=== PATIENT | female | born 1940 | race Caucasian/White ===

== ENCOUNTER → 2017-06-30 | Outpatient (CLI) | payer OTHER ==
[~2017-06-30] MED LIST: ADULT LOW DOSE81 MG PO; ASPIRIN325 PO; CALCIUM 500 +1 EAC5 PO; COUMADIN 5 MG TA5 M1 PO; EFFEXOR 5050 MG/1 T1 PO; EFFEXOR XR150 MG PO; ENOXAPARIN60 MG/0.6 SUBQ; FOSAMAX 70 MG T70 MG PO; LIPITOR10 MG PO; LISINOPRIL5 MG PO; NORVASC 5 MG TAB5 MG PO; NORVASC10 MG PO; REMERON15 M1 PO; REMERON15 MG PO; XARELTO15 MG PO; XARELTO20 MG PO; ZESTRIL40 MG PO
== END ==
LOC: M.RAD 12:56
DX: M47.896 Other spondylosis, lumbar region (principal); M43.26 Fusion of spine, lumbar region

== ENCOUNTER → 2017-08-11 | Outpatient (CLI) | payer OTHER | LOC: M.CT 13:08 | DX: Z12.31 Encounter for screening mammogram for malignant neoplasm of breast (principal); G31.09 Other frontotemporal neurocognitive disorder; R55 Syncope and collapse; R11.0 Nausea; R53.1 Weakness ==

== ENCOUNTER 2018-07-10 09:52 | Inpatient (IN) | payer OTHER ==
[~2018-07-10] VITALS: Ht 165.1 cm; Wt 64.0 kg
--- NOTE | ~2018-07-10 | CON ---
[address] [address] CONSULTATION Name: ERIC JORDAN Room: [address] IN M.R.#: [id number] Admission: 07/10/18 Attend Phys: Shahram Holman MD Discharge: Date of : 38 Report #: [id number] THIS REPORT FOR: //name// CC: Shahram Dixon MD DICTATED BY: Melisa Vera [facility] DATE OF SERVICE: 07/11/2018 Please note at the time of this dictation, the patient was seen and physically examined by myself. REASON FOR CONSULTATION: Blood in stool. HISTORY OF PRESENT ILLNESS: This is a 77-year-old female, who presented to the Emergency Room on Wednesday for complaints of bright red blood in her stool that started on Wednesday morning. The patient states Wednesday morning, she noted some really dark red blood in her stool initially and as the day progressed, it became more frequent and it was brighter, prompting her to come in. She states she was having bleeding without a bowel movement and she had to wear a sanitary pad to help with that. She states she has been having a decreased appetite and fluid intake over the last several days with all of this. She did not really complain of significant abdominal pain; however, on physical exam, she did. She denied any fever or chills, any nausea or vomiting at this time. The patient states her bowel habits, she usually goes daily; however, most of the time, she will have pellets as she calls them on a daily basis. The patient did have a colonoscopy back in 2008, appears to be with [facility] and we will try to obtain those records. ALLERGIES: No known drug allergies. MEDICATIONS: From home include Xarelto, Norvasc, Effexor, Os-Melvin, Fosamax, and Zestril and aspirin. PAST MEDICAL HISTORY: History of a PE in 2017, pulmonary hypertension, hypertension. PAST SURGICAL HISTORY: Cataract, hysterectomy, abdominoplasty, back surgery, tonsillectomy and had an IVC filter placed. FAMILY HISTORY: Negative for any GI or female cancers. SOCIAL HISTORY: Past history of tobacco use, social alcohol and [place] [address] CONSULTATION Name: ERIC JORDAN MINA Room: [address]#: [id number] Admission: 07/10/18 Attend Phys: Shahram Holman MD Discharge: Date of : 38 Report #: [id number] REVIEW OF SYSTEMS: Twelve-point review of systems is essentially negative except what is mentioned in the HPI. PHYSICAL EXAMINATION: VITAL SIGNS: Temperature 37.7, pulse 74, respirations 18, blood pressure 106/52. HEART: Regular rate and rhythm. LUNGS: Clear. ABDOMEN: Soft, positive bowel sounds in all 4 quadrants with some slight tenderness noted on the left side. LABORATORY DATA: Hemoglobin 12.7, white count is 10.2, platelets are 323. ESR is 22. CRP is 40.8, GFR is 43. CT of the abdomen and pelvis shows thickening in the distal transverse, splenic and descending parts of the colon. IMPRESSION: 1. Rectal bleeding. 2. Abdominal pain. 3. Constipation. 4. Anticoagulant therapy, history of a pulmonary embolism and on Xarelto. PLAN: 1. ____ colon, tomorrow. 2. Obtain records from [facility]. 3. Further recommendations to be made once the procedure has been performed. Thank you for allowing us to participate in this patient's care. Please do not hesitate to call with any questions in regard to this consult. By: [id number] Christina DO /mao
--- NOTE | ~2018-07-10 | PROC ---
[address] [address] PROCEDURE REPORT Name: ERIC JORDAN Room: [address] IN M.R.#: [id number] Admission: 07/10/18 Attend Phys: Shahram Holman MD Discharge: 07/12/18 Date of : 39 Report #: [id number] THIS REPORT FOR: //name// For GI report, please see the Provation report in Perceptive 7 content. By: 0705Medical Records Staff EDILBERTO /LOPEZ
--- NOTE | ~2018-07-10 | CON ---
[address] [address] CONSULTATION Name: ERIC JORDAN Room: [address] IN M.R.#: [id number] Admission: 07/10/18 Attend Phys: Shahram Holman MD Discharge: Date of : 39 Report #: [id number] THIS REPORT FOR: //name// CC: Shahram Dixon MD ADDENDUM TO JOB NUMBER [id number] REFERRING PHYSICIAN: Dr. Holman. I have seen and examined the patient and agree with the plan that has been outlined by our nurse practitioner, Melisa Vera. 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 She underwent a CT scan of the abdomen and pelvis, which was suggestive of inflammatory change noted within the transverse, descending and sigmoid colon. History sounds very much like it is compatible with a bout of ischemic colitis. Complicating matters, however, is the fact she underwent a full colonoscopy or an attempted colonoscopy in the past and states that due to acute angulation within the colon, they were not able to complete the examination despite the fact that they used what sounds like a pediatric colonoscope or even an upper endoscope. I have kept this in mind and we will take that in consideration when we proceed with colonoscopy tomorrow. At the present time, the patient is currently in the process of drinking her bowel prep, she cannot drink any more of the Colyte, so I told her she can just take some Dulcolax tablets and some water and we will proceed with attempt at colonoscopy tomorrow. I discussed these plans with the patient as well and she is agreeable to the same. By: [id number] Christina DO /mao
[2018-07-10 10:02] VITALS: BP 155/129
[2018-07-10 10:34] LABS: ABSOLUTE BASOPHILS 0.1 thou/uL (0.0-0.2); ABSOLUTE EOSINOPHILS 0.1 thou/uL (0.0-0.7); ABSOLUTE LYMPHOCYTES 1.6 thou/uL (0.8-5.3); ABSOLUTE MONOCYTES 0.9 thou/uL (0.0-1.2); ABSOLUTE NEUTROPHILS 11.2 thou/uL (1.6-8.1); BASOPHILS 0.5 %; EOSINOPHILS 0.6 %; HEMATOCRIT 45.8 % (37.0-47.0); HEMOGLOBIN 15.3 gm/dL (12.0-15.0); LYMPHOCYTES 11.4 %; MCH 29.7 pg (26.0-34.0); MCHC 33.5 g/dL (28.0-37.0); MCV 88.7 fL (80.0-100.0); MONOCYTES 6.6 %; MPV 7.8 fl. (7.2-11.1); NUCLEATED RBCS 0 /100WBC; PLATELET COUNT* 400 thou/uL (150-400); POLYS 80.9 %; RBC 5.16 mil/uL (4.20-5.00); RDW-CV 14.8 % (10.5-14.5); WBC 13.8 thou/uL (4.0-11.0)
[2018-07-10 10:46] LABS: APTT 29.7 Seconds (25.0-31.3); PROTIME 10.1 Seconds (9.20-11.50)
[2018-07-10 10:59] LABS: CALCIUM 9.1 mg/dL (8.5-10.1); CREATININE 1.6 mg/dL (0.6-1.3)
[2018-07-10 11:04] LABS: ALBUMIN 3.7 g/dL (3.4-5.0); TOTAL BILIRUBIN 0.7 mg/dL (<0.1-1.0); TOTAL PROTEIN 7.7 g/dL (6.4-8.2)
[2018-07-10 11:05] LABS: POTASSIUM 4.1 mmol/L (3.5-5.1)
--- NOTE | 2018-07-10 12:13 | NUR ---
PT PUT ON HOSPITAL BED
[2018-07-10 14:11] LABS: URINE BILIRUBIN NEGATIVE (Negative); URINE BLOOD 1+ (Negative); URINE CLARITY CLEAR; URINE COLOR YELLOW; URINE GLUCOSE-RANDOM NEGATIVE (Negative); URINE KETONES NEGATIVE (Negative); URINE LEUKOCYTES-REFLEX NEGATIVE (Negative); URINE NITRITE-REFLEX NEGATIVE (Negative); URINE PROTEIN NEGATIVE (Negative); URINE SPECIFIC GRAVITY <= 1.005 (1.005-1.030); URINE UROBILINOGEN 0.2 E.U./dl (0.2-1.0)
[2018-07-10 14:22] LABS: SQUAMOUS >10 Many /LPF (0-3)
[2018-07-10 14:23] LABS: BACTERIA-REFLEX 1-9 Few /HPF (None Seen); CRYSTALS None Seen /LPF (None Seen); HYALINE CASTS 0-3 Few /LPF (None Seen); MUCUS 0-3 Light strn/LPF (None Seen); URINE RBC 0-2 Rare /HPF (0-2); URINE WBC-REFLEX 0-5 Rare /HPF (0-5)
[2018-07-10 18:24] LABS: HEMATOCRIT 40.4 % (37.0-47.0)
[2018-07-10 18:25] LABS: HEMOGLOBIN 13.3 gm/dL (12.0-15.0)
[2018-07-10 19:59] VITALS: BP 132/61
[2018-07-10 20:15] VITALS: BP 145/71
[2018-07-10] MEDS ORDERED: EFFEXOR XR75 MG PO (20:34)
[2018-07-11] VITALS: BP 127/57
[2018-07-11 02:37] LABS: ABSOLUTE BASOPHILS 0.1 thou/uL (0.0-0.2); ABSOLUTE EOSINOPHILS 0.2 thou/uL (0.0-0.7); ABSOLUTE LYMPHOCYTES 1.9 thou/uL (0.8-5.3); ABSOLUTE MONOCYTES 0.8 thou/uL (0.0-1.2); ABSOLUTE NEUTROPHILS 7.3 thou/uL (1.6-8.1); BASOPHILS 0.8 %; EOSINOPHILS 1.8 %; HEMATOCRIT 38.6 % (37.0-47.0); HEMOGLOBIN 12.7 gm/dL (12.0-15.0); LYMPHOCYTES 18.3 %; MCH 29.5 pg (26.0-34.0); MCHC 32.8 g/dL (28.0-37.0); MONOCYTES 7.8 %; MPV 7.4 fl. (7.2-11.1); NUCLEATED RBCS 0 /100WBC; POLYS 71.3 %; RBC 4.29 mil/uL (4.20-5.00); RDW-CV 14.9 % (10.5-14.5); WBC 10.2 thou/uL (4.0-11.0)
[2018-07-11 02:38] LABS: PLATELET COUNT* 323 thou/uL (150-400)
[2018-07-11 02:42] LABS: CREATININE 1.2 mg/dL (0.6-1.3); POTASSIUM 3.4 mmol/L (3.5-5.1)
[2018-07-11 03:41] LABS: ESR (SEDRATE) 22 mm/hr (0-30)
[2018-07-11 04:00] VITALS: BP 116/57
--- NOTE | 2018-07-11 05:33 | NUR ---
RECEIVED REPORT FROM ELEVATED GUARDKENDRICK SUAZO AT 195. PT ARRIVED TO ROOM AT 2009 VIA CART. PT AAOX4, ORIENTED TO ROOM AND CALL LIGHT. VOICED NO CONCERNS. IV FLUIDS INFUSING. CALL LIGHT WITHIN REACH. NEGATIVE SEPSIS SCREENING.
[2018-07-11 08:00] VITALS: BP 106/52
--- NOTE | 2018-07-11 08:00 | NUR ---
AM ASSESSMENT COMPLETE, DEFER TO COMPUTER CHARTING. HOUSE DECORATOR TRACKING SR. DENIES PAIN, DIZZINESS, NAUSEA AT THIS TIME. IV INFUSING - BP SLIGHTLY LOW THIS AM - NURSE SPOKE WITH DR HUNT - AM BP MEDS AND ASPIRIN HELD AT THIS TIME. UP TO BATHROOM WITH SUPERVISION, HAD BROWNISH, YELLOW LOOSE BM - NO BRIGHT RED BLOOD NOTED. IN BED WITH HOB ELEVATED, CALL LIGHT WITHIN REACH. WILL MONITOR.
[2018-07-11 11:12] VITALS: BP 95/50
--- NOTE | 2018-07-11 12:12 | NUR ---
Pt is A&O. Resides at home with her . Active and independent. No DME. No hx of HH or SNF. Goal is home at ct. No needs.
--- NOTE | 2018-07-11 12:44 | EKG ---
[place] [address] ELECTROCARDIOGRAM REPORT Name: ERIC JORDAN Room: [address] ADM IN M.R.#: [id number] Admission: 07/10/18 Attend Phys: Shahram Holman MD Discharge: Date of : 39 Report #: [id number] THIS REPORT FOR: //name// [facility] ED Test Date: 2018-07-10 Test Time: 10:42:22 Pat Name: ERIC JORDAN Department: Room: [facility] Gender: F Hand Laster: Michelle CARLSON : 1940 Requested By: Nunu Mcnulty Order Number: [id number] MD: Luis F Payton Measurements Intervals [place] Rate: 73 P: 61 MN: 184 QRS: 52 QRSD: 82 T: 38 QT: 378 QTc: 417 Interpretive Statements Sinus rhythm Low voltage, precordial leads Compared to ECG 09/28/2016 18:01:13 Myocardial infarct finding no longer present T-wave abnormality no longer present Electronically Signed On 07-11-2018 12:43:55 CDT by Luis F Payton [email or web address] <ELECTRONICALLY SIGNED> By: Luis F Payton MD, [facility] 07/11/18 1243 1042 1042 Luis F Payton MD, [facility] /EPI
[2018-07-11 15:48] VITALS: BP 145/89
--- NOTE | 2018-07-11 16:25 | NUR ---
BEHAVIORAL HEALTH DIRECTOR TRACKING WITH NO CHANGE IN RHYTHM. PATIENT STARTED ON BOWEL PREP EARLIER ORDERED, NO BLOODY STOOL NOTED OF THIS TIME WITH PREP. NO COMPLAINTS OF NAUSEA. TOLERATING CLEAR LIQUID DIET. AT BEDSIDE. CALL LIGHT WITHIN REACH. WILL CONTINUE WITH PLAN OF CARE.
[2018-07-11 20:00] VITALS: BP 141/81
[2018-07-12] VITALS: BP 133/76
[2018-07-12 04:00] VITALS: BP 121/65
--- NOTE | 2018-07-12 04:51 | NUR ---
ASSUMED PT CARE AT 193. NURSING ASSESSMENT COMPLETED AT START OF SHIFT. PT VOICED NO CONCERNS SR ON GIFT OFFICER. NEW ORDERS RECEIVED FROM DR. HANNA SINCE PT UNABLE TO TOLERATE GOLYTELY AT 2119. HOURLY ROUNDING COMPLETED. PT NPO FOR COLONOSCOPY AT THIS TIME.
[2018-07-12 08:00] VITALS: BP 132/72
[2018-07-12 11:14] LABS: ABSOLUTE BASOPHILS 0.1 thou/uL (0.0-0.2); ABSOLUTE EOSINOPHILS 0.1 thou/uL (0.0-0.7); ABSOLUTE LYMPHOCYTES 1.5 thou/uL (0.8-5.3); ABSOLUTE MONOCYTES 0.7 thou/uL (0.0-1.2); ABSOLUTE NEUTROPHILS 6.9 thou/uL (1.6-8.1); BASOPHILS 1.2 %; EOSINOPHILS 1.6 %; HEMATOCRIT 37.3 % (37.0-47.0); HEMOGLOBIN 12.5 gm/dL (12.0-15.0); LYMPHOCYTES 15.9 %; MCH 29.9 pg (26.0-34.0); MCHC 33.4 g/dL (28.0-37.0); MCV 89.7 fL (80.0-100.0); MONOCYTES 7.1 %; MPV 7.4 fl. (7.2-11.1); NUCLEATED RBCS 0 /100WBC; PLATELET COUNT* 309 thou/uL (150-400); POLYS 74.2 %; RBC 4.16 mil/uL (4.20-5.00); RDW-CV 14.8 % (10.5-14.5); WBC 9.3 thou/uL (4.0-11.0)
[2018-07-12 11:41] LABS: ALBUMIN 2.9 g/dL (3.4-5.0); CALCIUM 8.6 mg/dL (8.5-10.1); POTASSIUM 3.4 mmol/L (3.5-5.1); TOTAL BILIRUBIN 0.6 mg/dL (<0.1-1.0); TOTAL PROTEIN 6.1 g/dL (6.4-8.2)
[2018-07-12] MEDS ORDERED: MIRALAX17 GM PO (13:17)
[2018-07-12] MEDS ORDERED: CIPRO500 MG PO (13:26)
[2018-07-12] MEDS ORDERED: FLAGYL500 M1 PO (13:27)
[2018-07-12 13:30] VITALS: BP 132/72
--- NOTE | 2018-07-12 14:00 | NUR ---
PT READY FOR DC. ATTEMPT TO CALL GI TO ASK WHEN PT IS TO RESTART XARLETO. DR VILLELA PAGED.
--- NOTE | 2018-07-12 15:00 | NUR ---
PT EAGER TO GO HOME. WILL CALL PT WITH INSTRUCTIONS ON WHEN TO RESUME XARLETO WHEN GI RETURNS CALL. PT LEFT UNIT VIA WC
--- NOTE | 2018-07-12 15:39 | NUR ---
ORDER PER DR KRAUSE TO RESUME XARELTO IN AM. CALLED AND NOTIFIED PT
--- NOTE | 2018-07-13 16:06 | PATH ---
[facility] [address] [place] [address] PATHOLOGY RPT PROCEDURE Name: WANDY JORDAN Room: [address] IN M.R.#: [id number] Admission: 07/10/18 Date of : 38 Discharge: 07/12/18 Report #: [id number] Path Case #: [id number] [facility] Accession Number: [id number] . 01 Material submitted: . colon - SIGMOID COLON BIOPSY. Modifiers: sigmoid . 01 Clinical history: . Suspect ischemic colitis . 02 Diagnosis: Sigmoid colon biopsy: - Active colitis with mucosal necrosis typical of ischemic colitis. See comment. (SURI:pit 07/13/2018) QTP/07/13/2018 . 02 Comment: The biopsies reveal benign colonic mucosa including some with full mucosal thickness necrosis and adjacent ischemic mucosa having necrosis and atrophy of the superficial aspects and preservation of the deeper aspects of crypts in association with abundant active inflammation and fresh hemorrhage and condensation of the lamina propria. No significant crypt distortion or basal lymphoplasmacytosis is present to elevate a suspicion for inflammatory bowel disease and no viral inclusions are seen. (SURI:pit 07/13/2018) . 02 Electronically signed: . Thomas Cesar MD, Pathologist NPI- [id number] . 01 Gross description: . Received in formalin labeled "Wandy Jordan, sigmoid colon biopsy," are 2 segments of painter soft tissue measuring 0.6 x 0.1 x 0.1 cm in aggregate dimensions and ranging from 0.2 to 0.4 cm in maximum dimension. The specimen is submitted entirely in cassette A1. (TSD; 07/12/2018) TOB/TOB . 02 Pathologist provided ICD-10: K52.9, K55.069 . 02 CPT . 245885 Specimen Comment: A courtesy copy of this report has been sent to Specimen Comment: [phone], , . Specimen Comment: Report sent to ,DR HUNT / DR BOTELLO Performed at: [address] [place] [address] PATHOLOGY RPT PROCEDURE Name: WANDY JORDAN [facility] Room: [address] DIS IN M.R.#: [id number] Admission: 07/10/18 Date of : 38 Discharge: 07/12/18 Report #: [id number] Path Case #: [id number] [facility] [place] [address] [facility] [address], [place] [id number] MD Rolf Capps MD Phone: [phone] Performed at: 02 [facility] [address], [place], [place] [id number] MD Thomas Cesar MD Phone: [phone]
== END 2018-07-12 14:52 | disposition home or self-care (01) | DRG 377 ==
LOC: M.ERS 09:52 → M.2W 11:28 → M.TBA-ER 11:28 → M.2W 20:29
PROVIDERS: Internal Medicine Gastroenterology; Nurse Practitioner Family; ADMIT Internal Medicine
PROC: 0DBN8ZX Excision of Sigmoid Colon, Via Natural or Artificial Opening Endoscopic, Diagnostic (ICD-10-PCS; principal; 2018-07-12)
DX: K57.31 Diverticulosis of large intestine without perforation or abscess with bleeding (principal); N17.0 Acute kidney failure with tubular necrosis; R65.11 Systemic inflammatory response syndrome (SIRS) of non-infectious origin with acute organ dysfunction; I42.9 Cardiomyopathy, unspecified; K55.9 Vascular disorder of intestine, unspecified; A09 Infectious gastroenteritis and colitis, unspecified; D62 Acute posthemorrhagic anemia; I10 Essential (primary) hypertension; E86.0 Dehydration; K59.09 Other constipation; K64.4 Residual hemorrhoidal skin tags; E78.5 Hyperlipidemia, unspecified; Z79.899 Other long term (current) drug therapy; Z79.82 Long term (current) use of aspirin; Z90.710 Acquired absence of both cervix and uterus; Z98.49 Cataract extraction status, unspecified eye; Z86.711 Personal history of pulmonary embolism; Z87.891 Personal history of nicotine dependence; Z79.01 Long term (current) use of anticoagulants

== ENCOUNTER → 2018-08-02 | Outpatient (CLI) | payer OTHER ==
[~2018-08-02] MED LIST changes: +CIPRO500 MG PO; +EFFEXOR XR75 MG PO; +FLAGYL500 M1 PO; +MIRALAX17 GM PO
[2018-08-02 10:47] LABS: CREATININE 1.5 mg/dL (0.6-1.3)
== END ==
LOC: M.LAB 08-01 10:30 → M.CT 08-01 10:30 → M.LAB 10:00 → M.CT 11:00
PROVIDERS: Internal Medicine
DX: K57.30 Diverticulosis of large intestine without perforation or abscess without bleeding (principal); I10 Essential (primary) hypertension; I26.99 Other pulmonary embolism without acute cor pulmonale; E78.2 Mixed hyperlipidemia; K55.9 Vascular disorder of intestine, unspecified; Z79.899 Other long term (current) drug therapy

== ENCOUNTER → 2018-11-14 | Outpatient (CLI) | payer OTHER ==
--- NOTE | 2018-11-14 12:00 | 2DMMODE ---
[place] [address] 2 D/M-MODE ECHOCARDIOGRAM Name: ERIC JORDAN Room: [facility]#: [id number] Admission: 11/14/18 Attend Phys: Amrit Dixon, Discharge: Date of : 38 Date of Service: 11/14/18 1159 Report #: [id number] THIS REPORT FOR: //name// APPROVED REPORT Study performed: 11/14/2018 09:12:33 EXAM: Comprehensive 2D, Doppler, and color-flow Echocardiogram Patient Location: Out-Patient BSA: 1.69 HR: 82 bpm BP: 130/80 mmHg Other Information Study Quality: Good Indications Dyspnea 2D Dimensions IVSd: 9.25 (7-11mm) LVOT Diam: 20.11 (18-24mm) LVDd: 39.72 mm PWd: 8.88 (7-11mm) Ascending Ao: 26.26 (22-36mm) LVDs: 29.30 (25-40mm) Aortic Root: 24.47 mm Volumes Left Atrial Volume (Systole) LA ESV Index: 8.00 mL/m2 Aortic Valve AoV Peak Chang.: 0.95 m/s AO Peak Gr.: 3.64 mmHg LVOT Max P.99 mmHg AO Mean Gr.: 1.91 mmHg LVOT Mean P.62 mmHg LVOT Max V: 1.00 m/s AO V2 VTI: 18.08 cm LVOT Mean V: 0.57 m/s JEREMIAS (VTI): 3.23 cm2 LVOT V1 VTI: 18.40 cm Mitral Valve E/A Ratio: 0.58 MV Decel. Time: 248.63 ms MV E Max Chang.: 0.42 m/s MV PHT: 72.10 ms MVA (PHT): 3.05 [place]2 [place] [address] 2 D/M-MODE ECHOCARDIOGRAM Name: ERIC JORDAN Room: [facility]#: [id number] Admission: 11/14/18 Attend Phys: Amrit Dixon, Discharge: Date of : 38 Date of Service: 11/14/18 1159 Report #: [id number] TDI E/Lateral E': 8.40 E/Medial E': 6.00 Medial E' Chang.: 0.07 m/s Lateral E' Chang.: 0.05 m/s Pulmonary Valve PV Peak Chang.: 0.72 m/s PV Peak Gr.: 2.10 mmHg Tricuspid Valve RAP Estimate: 5.00 mmHg TR Peak Gr.: 14.92 mmHg RVSP: 19.92 mmHg PA Pressure: 19.92 mmHg Left Ventricle The left ventricle is normal size. There is normal LV segmental wall motion. There is normal left ventricular wall thickness. Left ventricular systolic function is normal. The left ventricular ejection fraction is within the normal range. LVEF is 65%. Grade I - abnormal relaxation pattern. Right Ventricle The right ventricle is normal size. The right ventricular systolic function is normal. Atria The left atrium size is normal. The right atrium size is normal. Aortic Valve Mild aortic valve sclerosis. No aortic regurgitation is present. There is no aortic valvular stenosis. Mitral Valve The mitral valve is normal in structure. There is no mitral valve regurgitation noted. No evidence of mitral valve stenosis. Tricuspid Valve The tricuspid valve is normal in structure. Trace tricuspid regurgitation. Pulmonic Valve The pulmonary valve is normal in structure. There is no pulmonic valvular regurgitation[place] [address] 2 D/M-MODE ECHOCARDIOGRAM Name: ERIC JORDAN Room: [facility]#: [id number] Admission: 11/14/18 Attend Phys: Amrit Dixon, Discharge: Date of : 38 Date of Service: 11/14/18 1159 Report #: [id number] The aortic root is normal in size. IVC is normal in size and collapses >50% with inspiration. Pericardium There is no pericardial effusion. <Conclusion> The left ventricle is normal size. There is normal left ventricular wall thickness. Left ventricular systolic function is normal. The left ventricular ejection fraction is within the normal range. LVEF is 65%. Grade I - abnormal relaxation pattern. The right ventricle is normal size. The left atrium size is normal. Mild aortic valve sclerosis. No aortic regurgitation is present. There is no aortic valvular stenosis. The mitral valve is normal in structure. The tricuspid valve is normal in structure. IVC is normal in size and collapses >50% with inspiration. There is no pericardial effusion. There is normal LV segmental wall motion. <ELECTRONICALLY SIGNED> By: Luis F Payton MD, FACC 11/14/18 1159 1159 1159 Luis F Payton MD, FACC /INF
== END ==
LOC: M.CT 11-09 09:00 → M.CRD 11-09 10:00 → M.RAD 09:08 → M.CT 09:30 → M.CRD 14:00
DX: Z12.31 Encounter for screening mammogram for malignant neoplasm of breast (principal); I08.0 Rheumatic disorders of both mitral and aortic valves; J98.4 Other disorders of lung

== ENCOUNTER → 2018-11-18 | Outpatient (CLI) | payer OTHER ==
--- NOTE | 2018-11-18 17:07 | CARDNUC ---
[place] [address] CARDIAC NUCLEAR IMAGING REPORT Name: ERIC JORDAN Room: [facility]#: [id number] Admission: 11/18/18 Attend Phys: Amrit Dixon, Discharge: Date of : 38 Date of Service: 11/18/18 1707 Report #: [id number] THIS REPORT FOR: //name// APPROVED REPORT Imaging Protocol: Rest Tc-99m/Stress Tc-99m 1 day Study performed: 11/18/2018 13:00:00 Indication: Dyspnea, DECREASED EXERCISE TOLERANCE Patient Location: Out-Patient Stress Tech: Roselia Lima Stress Nurse: Kim Weinstein RN NM Tech:SISSY Farmer Ht: 5 ft 4 in Wt: 142 lbs BSA: 1.69 m2 BMI: 24.37 Medical History Medical History: HYPERLIPIDEMIA, HYPERTENSION Medications: AMLODIPINE, ATORVASTATIN, LISINOPRIL, XARELTO Allergies: BUPROPION Cardiac Risk Factors: AGE, HYPERLIPIDEMIA, HYPERTENSION, FORMER TOBACCO, FAMILY HX Exercise History: Indeterminate Resting Data Rest SPECT myocardial perfusion imaging was performed in supine position 30 minutes following the intravenous injection of 10.0 mCi of Tc-99m Sestamibi. Time of rest injection: 1315 Date: 11/18/2018 The images were gated to evaluate regional wall motion and calculate left ventricular ejection fraction. Administration Route: IV Administration Site: Left AC Pharmacologic Stress Pharmacologic stress test was performed by injecting Regadenoson 0.4 mg IV push over 10-15 seconds immediately followed by the intravenous injection of 35.8 mCi of Tc-99m Sestamibi. Time of stress injection: 1435 Date: 11/18/2018 Administration Route: IV Administration Site: Left AC Gated Stress SPECT was performed 40 minutes after stress injection. The images were gated to evaluate regional [place] [address] CARDIAC NUCLEAR IMAGING REPORT Name: ERIC JORDAN Room: [facility]#: [id number] Admission: 11/18/18 Attend Phys: Amrit Dixon, Discharge: Date of : 38 Date of Service: 11/18/18 1707 Report #: [id number] left ventricular ejection fraction. Prone imaging was performed. Stress Test Details Stress Test: Pharmacologic stress testing performed using 0.4 mg of regadenoson per 5 mL given IV over 10 seconds. Reason for pharmacologic stress test: physical limitation. HR Max Heart Rate (APMHR): 141 bpm Resting HR: 75 bpm Target HR (85% APMHR): 119 bpm Max HR Achieved: 89 bpm % of APMHR: 63 Recovery HR: 90 bpm BP Resting BP: 128/78 mmHg Max BP: 91/60 mmHg Recovery BP: 108/62 mmHg ECG Resting ECG: Sinus Rhythm Stress ECG: Sinus Rhythm ST Change: None Arrhythmia: None Recovery ECG: Sinus Rhythm Recovery ST Change: None Recovery Arrhythmia: None Clinical Reason for Termination: Completed protocol Exercise duration: 0 min sec Exercise capacity: 1 METs The patient tolerated Lexiscan infusion without significant cardiac symptoms. Nurse Comments PT GAIT UNSTEADY, UNABLE TO WALK ON TREADMILL Stress ECG Conclusion The baseline 12-lead EKG shows sinus rhythm without significant ST or T wave abnormality. EKGs obtained during and post Lexiscan infusion show sinus rhythm with no significant ST or T wave changes when compared to baseline. There were no significant stress-induced arrhythmias. Study Quality Study: [place] [address] CARDIAC NUCLEAR IMAGING REPORT Name: ERIC JORDAN MINA Room: [facility]#: [id number] Admission: 11/18/18 Attend Phys: Amrit Dixon, Discharge: Date of : 38 Date of Service: 11/18/18 1707 Report #: [id number] Artifact: No artifact Study Data At rest, the left ventricular ejection fraction was 86%.. Post stress, the left ventricular ejection was 76%.. TID = 0.87. Perfusion Normal left ventricular perfusion. Wall Motion Normal left ventricular wall motion. Nuclear Conclusion ECG Findings: negative for ischemia Clinical Findings: negative for ischemia Nuclear Findings: negative for ischemia Exercise Capacity: not assessed Left Ventricular Function: normal Risk Study: low Myocardial perfusion images show no defect to suggest infarct or ischemia. Left ventricular systolic function appears normal on gated studies. This is a low risk study. <Conclusion> The baseline 12-lead EKG shows sinus rhythm without significant ST or T wave abnormality. EKGs obtained during and post Lexiscan infusion show sinus rhythm with no significant ST or T wave changes when compared to baseline. There were no significant stress-induced arrhythmias. <ELECTRONICALLY SIGNED> By: Long Menendez MD, [facility] 11/18/181706 06 06 Long Menendez MD, FACC /INF
== END ==
LOC: M.CT 11-04 13:39 → M.NUC 13:00
DX: I26.99 Other pulmonary embolism without acute cor pulmonale (principal); I10 Essential (primary) hypertension; R92.8 Other abnormal and inconclusive findings on diagnostic imaging of breast; E78.5 Hyperlipidemia, unspecified; Z79.899 Other long term (current) drug therapy; Z87.891 Personal history of nicotine dependence

== ENCOUNTER 2019-03-20 09:57 | Emergency (ER) | payer MEDICARE ==
[~2019-03-20] VITALS: Ht 162.6 cm; Wt 63.5 kg
[2019-03-20 10:33] LABS: ABSOLUTE NEUTROPHILS 5.2 thou/uL (1.6-8.1); HEMOGLOBIN 13.9 gm/dL (12.0-15.0); NUCLEATED RBCS 0 /100WBC
[2019-03-20 10:35] LABS: ABSOLUTE BASOPHILS 0.1 thou/uL (0.0-0.2); ABSOLUTE EOSINOPHILS 0.1 thou/uL (0.0-0.7); ABSOLUTE LYMPHOCYTES 1.3 thou/uL (0.8-5.3); ABSOLUTE MONOCYTES 0.6 thou/uL (0.0-1.2); EOSINOPHILS 1.4 %; HEMATOCRIT 40.9 % (37.0-47.0); LYMPHOCYTES 17.5 %; MCH 30.5 pg (26.0-34.0); MCHC 33.9 g/dL (28.0-37.0); MONOCYTES 8.5 %; MPV 7.8 fl. (7.2-11.1); PLATELET COUNT* 327 thou/uL (150-400); POLYS 71.6 %; RBC 4.55 mil/uL (4.20-5.00); RDW-CV 14.4 % (10.5-14.5); WBC 7.3 thou/uL (4.0-11.0)
[2019-03-20 10:41] LABS: URINE BLOOD 2+ (Negative); URINE CLARITY CLEAR; URINE COLOR YELLOW; URINE GLUCOSE-RANDOM TRACE (Negative); URINE KETONES NEGATIVE (Negative); URINE LEUKOCYTES-REFLEX NEGATIVE (Negative); URINE NITRITE-REFLEX NEGATIVE (Negative); URINE PROTEIN TRACE (Negative); URINE SPECIFIC GRAVITY >= 1.030 (1.005-1.030); URINE UROBILINOGEN 0.2 E.U./dl (0.2-1.0)
[2019-03-20 10:42] LABS: CALCIUM 8.6 mg/dL (8.5-10.1); CREATININE 1.5 mg/dL (0.6-1.3); POTASSIUM 3.6 mmol/L (3.5-5.1)
[2019-03-20 10:54] LABS: ALBUMIN 3.5 g/dL (3.4-5.0); TOTAL BILIRUBIN 0.6 mg/dL (<0.1-1.0); TOTAL PROTEIN 6.9 g/dL (6.4-8.2)
[2019-03-20 10:54] LABS: URINE BILIRUBIN 2+ (Negative)
[2019-03-20 10:56] LABS: ICTOTEST (BILI CONFIRMATORY) Negative (Negative)
[2019-03-20 11:01] LABS: BACTERIA-REFLEX 1-9 Few /HPF (None Seen); CASTS None Seen /LPF (None Seen); CRYSTALS None Seen /LPF (None Seen); MUCUS None Seen strn/LPF (None Seen); SQUAMOUS >10 Many /LPF (0-3); URINE RBC 3-10 Few /HPF (0-2); URINE WBC-REFLEX 0-5 Rare /HPF (0-5)
[2019-03-20 12:42] VITALS: BP 152/82
--- NOTE | 2019-03-20 14:41 | EKG ---
[place] [address] ELECTROCARDIOGRAM REPORT Name: ERIC JORDAN [id number] Admission: 03/20/19 Attend Phys: Discharge: 03/20/19 Date of : 38 Report #: [id number] THIS REPORT FOR: //name// [facility] ED Test Date: 2019-03-20 Test Time: 11:44:55 Pat Name: ERIC JORDAN Department: Room: Gender: F Insurance Sales Associate: : 1940 Requested By: Bakari Watson Order Number: [id number] MD: Amrit El Measurements Intervals [place] Rate: 78 P: 70 GA: 208 QRS: 39 QRSD: 82 T: 8 QT: 359 QTc: 409 Interpretive Statements Sinus rhythm Low voltage, precordial leads Compared to ECG 07/10/2018 10:42:22 No significant changes Electronically Signed On 03-20-2019 14:40:58 MANAGER BALANCE by Amrit El [email or web address] <ELECTRONICALLY SIGNED> By: Amrit El MD, [facility] 03/20/19 1440 1144 1144 Amrit El MD, FACC /EPI
== END 2019-03-20 12:55 | disposition home or self-care (01) ==
LOC: M.ERS 09:57
PROVIDERS: Family Medicine
DX: R10.31 Right lower quadrant pain (principal); R19.7 Diarrhea, unspecified; I10 Essential (primary) hypertension; Z87.891 Personal history of nicotine dependence; Z90.710 Acquired absence of both cervix and uterus; Z90.89 Acquired absence of other organs

== ENCOUNTER → 2020-01-25 | Outpatient (CLI) | payer MEDICARE | LOC: M.RAD 11:25 | PROVIDERS: ATTEND Internal Medicine | DX: Z12.31 Encounter for screening mammogram for malignant neoplasm of breast (principal); M81.0 Age-related osteoporosis without current pathological fracture; I10 Essential (primary) hypertension; I27.82 Chronic pulmonary embolism; D68.62 Lupus anticoagulant syndrome; N18.32 Chronic kidney disease, stage 3b; E78.5 Hyperlipidemia, unspecified ==

== ENCOUNTER → 2020-06-10 | Outpatient (CLI) | payer MEDICARE | LOC: M.RAD 10:32 | PROVIDERS: ATTEND Internal Medicine | DX: M51.36 Other intervertebral disc degeneration, lumbar region (principal); M43.26 Fusion of spine, lumbar region; M48.061 Spinal stenosis, lumbar region without neurogenic claudication; M25.78 Osteophyte, vertebrae ==

== ENCOUNTER → 2020-07-03 | Outpatient (CLI) | payer MEDICARE | LOC: M.PC 09:29 | PROVIDERS: ATTEND Physical Medicine & Rehabilitation | DX: M47.26 Other spondylosis with radiculopathy, lumbar region (principal); M51.16 Intervertebral disc disorders with radiculopathy, lumbar region; Z98.1 Arthrodesis status ==

== ENCOUNTER 2020-07-10 13:50 | Emergency (ER) | payer MEDICARE ==
[~2020-07-10] VITALS: Ht 160 cm; Wt 63.5 kg
[2020-07-10] MEDS ORDERED: MEDROLDOSEPACK PO (14:52)
[2020-07-10] MEDS ORDERED: BACLOFEN5 MG PO (14:52)
[2020-07-10 15:29] VITALS: BP 122/66
== END 2020-07-10 15:30 | disposition home or self-care (01) ==
LOC: M.ERS 13:50
DX: M62.838 Other muscle spasm (principal); M79.652 Pain in left thigh; I10 Essential (primary) hypertension; Z90.711 Acquired absence of uterus with remaining cervical stump; Z98.890 Other specified postprocedural states; Z90.89 Acquired absence of other organs; Z79.899 Other long term (current) drug therapy; Z87.891 Personal history of nicotine dependence

== ENCOUNTER → 2020-08-14 | Outpatient (CLI) | payer MEDICARE ==
[~2020-08-14] MED LIST changes: +BACLOFEN5 MG PO; +MEDROLDOSEPACK PO
== END ==
LOC: M.MRI 13:24
PROVIDERS: ATTEND Orthopaedic Surgery Hand Surgery
DX: R22.32 Localized swelling, mass and lump, left upper limb (principal); R22.31 Localized swelling, mass and lump, right upper limb

== ENCOUNTER → 2020-11-05 | Outpatient (CLI) | payer MEDICARE ==
[2020-11-05 13:38] LABS: CREATININE 1.4 mg/dL (0.6-1.3)
== END ==
LOC: M.LAB 12:30 → M.MRI 13:30
PROVIDERS: ATTEND Anesthesiology Pain Medicine
DX: M43.16 Spondylolisthesis, lumbar region (principal); M48.061 Spinal stenosis, lumbar region without neurogenic claudication; M43.26 Fusion of spine, lumbar region; M48.07 Spinal stenosis, lumbosacral region; M25.78 Osteophyte, vertebrae